=== PATIENT | female | born 1980 | race Caucasian/White ===

== ENCOUNTER 2020-03-19 16:04 | Emergency (ER) | payer OTHER ==
[~2020-03-19] VITALS: Ht 162.6 cm; Wt 68.0 kg
--- NOTE | 2020-03-19 16:42 | NUR ---
BIBS, WALKED IN TO ER. PT TO BED 14. AAOX4. IN EMOTIONAL DISTRESS, CRYING. AAOX4. NOT IN RESP DISTRESS. AMBULATORY. CAME IN FOR SUICIDAL IDEATION AND ATTEMPT OF CUTTING HERSELF. PER PT, SHE IS FEELING DEPRESSED BECAUSE OF A RECENT SEPARATION WITH HER SPOUSE. PT NOTED WITH 3 CUTS LENGTHWISE ON HER L FOREARM 1) 5CM LONG 2) 4CM LONG 3) 3CM LONG. PT ALSO HAVE A A CUT ON HER L LOWER LEG 6CM LONG AND MULTIPLE ARMENDARIZ SITE WHICH APPERS FROM CIGARETTE ON HER MEDIAL L ANKLE. PT IS STRIPPED OFF CLOTHING, VISUALLY INSPECTED FOR CONTRABAND, NO KNIFE FOUND. GOWN WITH ALL BELONGINGS PLACE IN LOCKER LOCATED IN UTILITY ROOM. WAS AT THE BEDSIDE FOR EVAL. ORDERS RECEIVED NOTED AND CARRIED OUT
--- NOTE | 2020-03-19 16:44 | NUR ---
1:1 SITTER AT BEDSIDE
--- NOTE | 2020-03-19 16:51 | NUR ---
EMT AT BEDSIDE FOR WOUND CLEANING AND DRESSING
[2020-03-19 16:53] LABS: BASOPHILS % (AUTO) 0.6 % (0.0-2.0); EOSINOPHILS % (AUTO) 2.1 % (0.0-6.0); HEMATOCRIT 42 % (33-45); HEMOGLOBIN 14.1 g/dL (11.5-14.8); MEAN CORPUSCULAR HGB CONC 34 g/dl (31.0-36.0); MEAN CORPUSCULAR VOLUME 95 fL (82-100); MONOCYTES % (AUTO) 6.8 % (2.0-12.0); NEUTROPHILS % (AUTO) 65.5 % (43.0-81.0); PLATELET COUNT (AUTO) 215 /CMM (150-450); RED BLOOD CELL COUNT(AUTO) 4.36 MIL/uL (4.0-5.2); WHITE BLOOD COUNT (AUTO) 5.5 K/uL (4.3-11.0)
[2020-03-19 16:54] LABS: LYMPHOCYTES # (AUTO) 1.4 /CMM (0.8-4.8); MONOCYTES # (AUTO) 0.4 /CMM (0.1-1.30); NEUTROPHILS # (AUTO) 3.6 /CMM (1.8-8.9)
[2020-03-19 17:01] LABS: CALCIUM, SERUM 9.3 mg/dL (8.5-10.1); CARBON DIOXIDE 29 mmol/L (21-32); CHLORIDE 102 mmol/L (98-107); CREATININE 1.1 mg/dL (0.6-1.3); GLUCOSE 112 mg/dL (74-106); POTASSIUM 3.5 mmol/L (3.5-5.1); SODIUM SERUM 137 mmol/L (136-145); UREA NITROGEN, BLOOD 16 mg/dL (7-18)
[2020-03-19 17:18] LABS: ACETAMINOPHEN 0 ug/ml (10-30); ALANINE AMINOTRANSFERASE 26 U/L (12-78); ALBUMIN 4.4 g/dL (3.4-5.0); ALCOHOL, BLOOD < 3 mg/dL (0-0); ALKALINE PHOSPHATASE 52 U/L (46-116); ASPARTATE AMINOTRANSFERASE 19 U/L (15-37); BILIRUBIN,DIRECT 0.1 mg/dL (0.0-0.2); BILIRUBIN,TOTAL 0.5 mg/dL (0.2-1.0); SALICYLATE 1.7 mg/dL (2.8-20.0); TOTAL PROTEIN, SERUM 7.2 g/dL (6.4-8.2)
[2020-03-19] MEDS ORDERED: LORAZEPAM 1 MG TABLET ONE ×2 (17:38→20:32)
--- NOTE | 2020-03-19 17:40 | NUR ---
PT IS CRYING AND FELING ANXIOUS. NON PHARMACOLOGICAL INTERVENTION DONE - BRAETHING EXERCISE DONE BUT INEFFECTIVE. MD MADE AWARE, VERBAL ORDER RECEIVED TO GIVE PT ATIVAN 1MG PO X 1 DOSE. ORDER NOTED AND CARRIED OUT.
[2020-03-19 17:44] LABS: APPEARANCE,URINE Clear (CLEAR); BILIRUBIN,URINE Negative (NEGATIVE); BLOOD, URINE Negative Ery/uL (NEGATIVE); COLOR,URINE Yellow (YELLOW); KETONES,URINE Negative (NEGATIVE); LEUKOCYTE ESTERASE ,URINE Negative (NEGATIVE); NITRITE, URINE Negative (NEGATIVE); PH,URINE 5.5 (5.0-8.0); PROTEIN,URINE Negative (NEGATIVE); UGLUCOSE Negative (NEGATIVE); UROBILINOGEN,URINE 0.2 EU/dL (0.2)
[2020-03-19] MEDS ORDERED: LORAZEPAM 1 MG TABLET PO ONE ×2 (18:00→20:30)
--- NOTE | 2020-03-19 19:07 | NUR ---
pt is seeking voluntary in patient. medically cleared inpatient
--- NOTE | 2020-03-19 19:50 | NUR ---
CLINICAL INFORMATION FAXED TO [facility]
--- NOTE | 2020-03-19 20:47 | NUR ---
UNABLE TO FIND LAMICTAL IN ER [facility], WILL ASK OTHER UNITS FOR MEDICATION AVAILABILITY.
[2020-03-19] MEDS ORDERED: LamoTRIgine 100 MG TABLET PO SCH (21:00)
--- NOTE | 2020-03-19 21:02 | NUR ---
PT ASLEEP. PROVIDED WITH WATER.
--- NOTE | 2020-03-19 21:30 | NUR ---
SG [facility] EN ROUTE TO HOSPITAL
--- NOTE | 2020-03-19 22:30 | NUR ---
ATTEMPTED TO CONTACT SG TREVI[facility]O FOR EVALUATION. LEFT MESSAGE, WILL FOLLOW UP
--- NOTE | 2020-03-19 23:10 | NUR ---
ATTEMPTED TO CONTACT SG TREVI[facility]O FOR EVALUATION. LEFT MESSAGE, WILL FOLLOW UP
--- NOTE | 2020-03-20 00:15 | NUR ---
ATTEMPTED TO CONTACT SG TREVI[facility]O FOR EVALUATION. LEFT MESSAGE, WILL FOLLOW UP
--- NOTE | 2020-03-20 01:19 | NUR ---
ATTEMPTED TO CONTACT SG TREVI[facility]O FOR EVALUATION. LEFT MESSAGE, WILL FOLLOW UP
--- NOTE | 2020-03-20 01:24 | NUR ---
ATTEMPTED TO CONTACT SG [facility]. LEFT MESSAGE, WILL FOLLOW UP
--- NOTE | 2020-03-20 01:35 | NUR ---
PER SG [facility] CALL [facility] FOR EVALUATION. ATTEMPTED TO CONTACT [facility] NO ANSWER, LEFT MESSAGE. WILL FOLLOW UP
--- NOTE | 2020-03-20 01:43 | NUR ---
SPOKE WITH [facility] CRIST[facility]. WILL COME FOR EVALUATION
--- NOTE | 2020-03-20 02:20 | NUR ---
PT ACCEPTED TO [facility] ACCEPTED BY DR. TORERS UNIT 1
[2020-03-20] MEDS ORDERED: TRAZODONE 50 MG TABLET ONE (02:23)
[2020-03-20] MEDS ORDERED: TRAZODONE 50 MG TABLET PO ONE (02:30)
--- NOTE | 2020-03-20 02:32 | NUR ---
PER AM ERMELINDA ETA 5AM
--- NOTE | 2020-03-20 02:34 | NUR ---
CALLED [facility] FOR TRANSPORTATION ETA [id number]. TRIP #[id number]
--- NOTE | 2020-03-20 02:54 | NUR ---
REPORT GIVEN TO WON HERR FROM [facility]
--- NOTE | 2020-03-20 03:56 | NUR ---
AMB[facility] DELAYED 30 MINUTES
--- NOTE | 2020-03-20 04:26 | NUR ---
REPORT GIVEN TO [facility] UNIT [address] FOR TRANSPORTATION [facility]
--- NOTE | 2020-03-20 04:26 | NUR ---
[facility]ATA ARRIVED. BELONGINGS RETURNED TO PATIENT.
[2020-03-20 04:30] VITALS: BP 109/66
== END 2020-03-20 04:26 | disposition short-term general hospital (02) ==
LOC: ER 16:10
DX: R45.851 Suicidal ideations (principal); F31.9 Bipolar disorder, unspecified; F41.9 Anxiety disorder, unspecified
CPT/HCPCS: 36415; 80048; 80076; 80305; 80307; 80329; 81001; 84703; 85025; 99285; G0480; 81000-TC